=== PATIENT | female | born 1985 | race Caucasian/White ===

== ENCOUNTER 2021-09-22 13:09 | Outpatient (CLI) | payer BC ==
[2021-09-22 13:37] LABS: Creatinine,Urine Random 224.1 mg/dL
[2021-09-22 13:42] LABS: Basophils % (A) 0 %; Eosinophils % (A) 0 %; HCT 39.9 % (34.0-46.0); HGB 12.7 gm/dL (11.4-16.0); Lymphocytes % (A) 13 %; MCH 29.2 pg (25.0-35.0); MCHC 31.8 g/dL (31.0-37.0); MCV 92.1 fL (80.0-100.0); Mean Platelet Volume 10.7; Monocytes # (A) 0.4 k/uL (0-1.0); Monocytes % (A) 5 %; Neutrophils # (A) 6.5 k/uL (1.3-7.7); Neutrophils % (A) 80 %; Platelet Count 160 k/uL (150-450); RBC 4.33 m/uL (3.80-5.40); RDW 14.3 % (11.5-15.5)
[2021-09-22 13:46] LABS: Appearance,Urine Cloudy (Clear); Bacteria,Urine Occasional /hpf; Bilirubin,Urine Negative (Negative); Blood,Urine Negative (Negative); Color,Urine Yellow; Glucose,Urine (UA) Negative (Negative); Ketones,Urine 1+ (Negative); Leukocyte Esterase,Urine Moderate (Negative); Mucus,Urine Few /hpf; Nitrite,Urine Negative (Negative); Protein,Urine Trace (Negative); RBC,Urine 1 /hpf (0-5); Specific Gravity,Urine 1.021 (1.001-1.035); Squamous Epithelial Cell,Urine 6 /hpf (0-4); Urobilinogen,Urine <2.0 mg/dL (<2.0); WBC,Urine 8 /hpf (0-5)
[2021-09-22 13:56] LABS: ALT 10 U/L (4-34); AST 19 U/L (14-36); African American GFR (CKD) >90 (>60 ml/min/1.73 sqM); Blood Urea Nitrogen 5 mg/dL (7-17); LDH 312 U/L (313-618); Non-African American GFR(CKD) >90 (>60 ml/min/1.73 sqM); Uric Acid 5.1 mg/dL (3.7-7.4)
[2021-09-22 14:31] VITALS: BP 128/80; PULSE 81; RESP 16; TEMP 98.2
--- NOTE | 2021-09-23 06:32 | P.MSEPDOC ---
Presenting Problems - Arrival Data Date of Arrival on Unit: 09/22/21 Time of Arrival on Unit: 13:00 Mode of Transport: Ambulatory - Complaint OB-Reason for Admission/Chief Complaint: PIH Comment: sent from office with orders for a pih work up Medical History - Information : 2 Para: 1 Term: 1 : 0 Abortions: Spontaneous or Elective: 0 Number of Living Children: 1 - Gestational Age Gestational Age by ESTELLA (wks/days): 37 Weeks and 0 Days Review of Systems - Review of Systems Constitutional: No problems Breast: No problems ENT: No problems Cardiovascular: No problems Respiratory: No problems Gastrointestinal: No problems Genitourinary: No problems Musculoskeletal: No problems Neurological: No problems Skin: No problems Vital Signs - Temperature Temperature: 98.2 F Temperature Source: Oral - Pulse Right Brachial Pulse Rate: 81 Pulse Assessment Method: Auscultation - Respirations Respiratory Rate: 16 Oxygen Delivery Method: Room Air - Blood Pressure Right Arm Blood Pressure: 128/80 Blood Pressure Mean: 96 Blood Pressure Source: Automatic Cuff Medical Screen Scoring - Assessment - Baby A Baseline FHR: 150 Heart Rate - NICHD Category: Category I (Normal) NST: Reactive Physician Notification - Physician Notified Physician Notified Date: 09/22/21 Physician Notified Time: 14:07 Physician: Ulises Grullon New Order Received: Yes - Notification Comment Comment: reported lab values, dr discharges pt follow up on tuesday. c/s to be added to ua Maternal Triage Index - Maternal Triage Index Presenting for scheduled procedure w/no complaint: No - Stat/Priority 1 Stat Priority 1: No - Urgent/Priority 2 Urgent Priority 2: No - Prompt/Priority 3 Prompt Priority 3: No - Non-Urgent/Priority 4 Non-Urgent Priority 4: Yes Criteria Met for Priority 4: sent from office with orders for pih work up Disposition - Disposition OB Disposition: Discharge to home Discharge Date: 09/22/21 Discharge Time: 14:16 I agree with the RN Medical Screening Exam: Yes Case reviewed; plan agreed upon as documented in EMR&OBIX.: Yes Diagnosis: RELATED CONDITIONS, UNSPECIFIED, THIRD TRIMESTER
== END 2021-09-22 14:16 | disposition home or self-care (01) ==
LOC: FBPOP 13:09
PROVIDERS: ATTEND Obstetrics & Gynecology
DX: O13.3 Gestational [pregnancy-induced] hypertension without significant proteinuria, third trimester (principal); Z3A.37 37 weeks gestation of pregnancy
CPT/HCPCS: 59025; 81001; 82565; 82570; 83615; 84156; 84450; 84460; 84520; 84550; 85025

== ENCOUNTER 2021-10-12 05:49 | Inpatient (IN) | payer BC ==
--- NOTE | 2021-10-11 12:32 | P.HPOB ---
History of Present Illness H&P Date: 10/11/21 Chief Complaint: Requested induction of labor. This patient is a pleasant 36 yr female EDC 10/13/2021 estimated gestational age 39 and 6/7 weeks who presents to L&D for requested induction labor. is complicated by advanced for maternal age. She declined genetic testing or [facility] referral, but has had normal anatomy ultrasounds and antepartum testing. She also has a history of gestational hypertension with her first and has been on 81m ASA. Review of Systems Genitourinary: Reports Menstruation: Reports amenorrhea Past Medical History Additional Past Medical History / Comment(s): History of migraine headaches. Previous term vaginal delivery baby girl. History of Any Multi-Drug Resistant Organisms: None Reported Past Surgical History: No Surgical Hx Reported Past Anesthesia/Blood Transfusion Reactions: No Reported Reaction Past Psychological History: No Psychological Hx Reported Smoking Status: Never smoker Past Alcohol Use History: None Reported Past Drug Use History: None Reported Medications and Allergies Allergies Allergy/AdvReac Type Severity Reaction Status Date / Time No Known Allergies Allergy Verified 09/22/21 13:13 Exam - OBG Physical Exam Abdomen: bowel sounds normal, no diffuse tenderness, no bruit present, no gua rding noted, no hepatomegaly, no splenomegaly, no mass Vulva: both: normal Vagina: normal moisture, no discharge Cervix: no lesion (Cervix in office 1-2 cm/soft/-2), no discharge Uterus: enlarged (Fundal height is 39cm) Anus/Rectum: normal perianal skin (Fune), no rectal mass, no hemorrhoids, heme negative Results Labs: O positive, Rubella Immune, LIN-SON-AjnS neg, GBS negative, most recent ultrasound shows Vtx 5#9oz (~50%) Assessment and Plan Assessment: This is a pleasant 36 yr female 39 6/7 weeks gestation who presents to L&D for elective induction of labor. Plan is induction of labor and anticipate vaginal delivery. (1) 39 weeks gestation of Status: Acute Code(s): Z3A.39 - 39 WEEKS GESTATION OF SNOMED Code(s): 49605290 (2) Elderly multigravida Status: Acute Code(s): O09.529 - SUPERVISION OF ELDERLY MULTIGRAVIDA, UNSPECIFIED TRIMESTER SNOMED Code(s): 716124888 (3) Elective induction of labor planned Status: Acute Code(s): NJV5007 - SNOMED Code(s): 633676178
[2021-10-12] MEDS ORDERED: OXYTOCIN 10 UNIT/ML 1 ML VIAL IM PRN (06:19)
[2021-10-12] MEDS ORDERED: LIDOCAINE 0.5% (PF) 5 MG/ML (50 ML SDV) SQ PRN (06:19)
[2021-10-12] MEDS ORDERED: OXYTOCIN 30 UNITS/500 ML NS 30 UNIT in SALINE 1 500ML.BAG IV SCH ×2 (06:19→13:03)
[2021-10-12] MEDS ORDERED: TERBUTALINE 1 MG/ML VIAL SQ PRN (06:19)
[2021-10-12] MEDS ORDERED: METHYLERGONOVINE 0.2 MG/ML 1 ML AMP IM PRN (06:19)
[2021-10-12] MEDS ORDERED: CARBOPROST TROMETHAMINE 250 MCG/ML 1 ML AMP IM PRN (06:19)
[2021-10-12] MEDS: LACTATED RINGERS 1,000 ML IV SCH ×2 (06:25→09:54)
[2021-10-12 06:28] LABS: Basophils % (A) 0 %; Eosinophils % (A) 0 %; HCT 41.9 % (34.0-46.0); HGB 14.1 gm/dL (11.4-16.0); Lymphocytes # (A) 1.4 k/uL (1.0-4.8); Lymphocytes % (A) 15 %; MCH 31.2 pg (25.0-35.0); MCHC 33.5 g/dL (31.0-37.0); MCV 93.2 fL (80.0-100.0); Mean Platelet Volume 10.5; Monocytes # (A) 0.4 k/uL (0-1.0); Monocytes % (A) 4 %; Neutrophils # (A) 7.3 k/uL (1.3-7.7); Neutrophils % (A) 79 %; Platelet Count 210 k/uL (150-450); RDW 14.8 % (11.5-15.5); WBC 9.3 k/uL (3.8-10.6)
[2021-10-12] MEDS ORDERED: ROPIVACAINE 100 MG, fentaNYL (PF). 200 MCG in SODIUM CHLORIDE 0.9% 76 ML EPIDURAL ONE (10:09)
--- NOTE | 2021-10-12 13:01 | P.PROBDLV ---
Vaginal Delivery Note - . Vaginal Delivery Note: Normal vaginal delivery viable female Apgars 9 and 9 delivery time is 1244 hrs. Please see dictated H&P for intimate details of this patient's admission. Brief summary this is a pleasant 36-year-old 2 para 1 female 39-6/7 weeks who presents to labor and delivery for requested induction of labor. On admission she is 2 cm dilated has artificial rupture of membranes for clear fluid. Patient's labor is induced with Pitocin per protocol. She does progress to 3 cm and request an epidural which is given with good relief. She then begins having approximately couple hours layers variable decelerations she is exam is found to be 8-9 cm dilated. She quickly thereafter progresses to complete pushes the head to the perineum. Posterior perineum is supported and we have controlled delivery of the infant's head straight occiput anterior presentation. Mouth and nares are bulb suctioned. There is no evidence of a nuchal cord. With gentle downward traction we then have deliver the anterior and posterior shoulder and rest this 's body. This is a vigorous viable female Apgars are 9 and 9 delivery time is 1244 hrs. has spontaneous respiration and good cry and grossly appears normal. After delivery of the is laid on the mother's abdomen. After the cord is done pulsating is doubly clamped and then cut. It appears to be trivascular. The placenta is then spontaneously delivered intact. Inspection of the perineum shows a first- degree perineal laceration that is reapproximated with 4-0 Vicryl. Estimated blood loss is 100 mL. There are no complications. and mother stable delivery room.
[2021-10-12] MEDS ORDERED: diphenhydrAMINE 50 MG/ML 1 ML VIAL IVP PRN (13:03)
[2021-10-12] MEDS ORDERED: ZOLPIDEM 5 MG TAB PO PRN (13:03)
[2021-10-12] MEDS ORDERED: LANOLIN CREAM 5 GM TUBE TOPICAL PRN (13:03)
[2021-10-12] MEDS ORDERED: HYDROCORTISONE 2.5% RECTAL CREAM 30 GM TUBE RECTAL PRN (13:03)
[2021-10-12] MEDS ORDERED: SIMETHICONE 80 MG CHEWABLE PO PRN (13:03)
[2021-10-12] MEDS ORDERED: ACETAMINOPHEN TAB 325 MG TAB PO PRN (13:03)
[2021-10-12] MEDS ORDERED: diphenhydrAMINE 25 MG CAP PO PRN (13:03)
[2021-10-12] MEDS ORDERED: bisacodyL 10 MG SUPP RECTAL PRN (13:03)
[2021-10-12] MEDS ORDERED: BENZOCAINE/MENTHOL SPRAY 1 GM/SPRAY AEROSOL TOPICAL PRN (13:03)
[2021-10-12] MEDS: SENNOSIDES-DOCUSATE SODIUM 1 EACH TAB PO SCH ×2 (13:53→20:18)
[2021-10-12] MEDS: IBUPROFEN 600 MG TAB PO PRN (17:07)
[2021-10-13] MEDS: IBUPROFEN 600 MG TAB PO PRN ×2 (05:31→20:14)
--- NOTE | 2021-10-13 06:21 | P.PNOBGVD ---
Subjective - Subjective Patient reports: Reports appetite normal, Reports voiding normally, Reports pain well controlled, Reports ambulating normally : doing well Objective - Latest Vital Signs Latest vital signs: Vital Signs Temp Pulse Resp BP Pulse Ox 10/13/21 00:00 97.9 F 59 L 16 111/72 98 10/12/21 20:00 98.1 F 71 16 118/77 97 10/12/21 15:01 98.5 F 73 16 111/66 10/12/21 14:31 81 16 131/78 10/12/21 14:01 81 16 136/86 10/12/21 13:46 75 16 133/78 10/12/21 13:31 78 16 134/84 10/12/21 13:16 86 16 147/85 10/12/21 13:01 99.1 F 96 16 143/71 10/12/21 07:25 96.5 F L 110 H 16 141/82 Intake and Output 10/12/21 10/12/21 10/13/21 14:59 22:59 06:59 Output Total 100 125 Balance -100 -125 Output: Output, Quantitative 100 125 Blood Loss Other: # Voids 1 1 Weight 107.048 kg - Exam Lungs: bilateral: normal Chest: Normal S1, Normal S2 Extremities: Present: normal Abdomen: Present: normal appearance, soft Uterus: Present: normal, firm Assessment and Plan Assessment: day #1. Patient is resting without complaints and wishes to go home. Vital signs are stable she's afebrile. Uterus is firm nontender and she is having normal lochia. My impression this is a normal course. Plan is to continue routine care discharge home later today. (1) 39 weeks gestation of Current Visit: No Status: Acute Code(s): Z3A.39 - 39 WEEKS GESTATION OF SNOMED Code(s): 58122004 (2) Elderly multigravida Current Visit: No Status: Acute Code(s): O09.529 - SUPERVISION OF ELDERLY MULTIGRAVIDA, UNSPECIFIED TRIMESTER SNOMED Code(s): 154905392 (3) Elective induction of labor planned Current Visit: No Status: Acute Code(s): CZR6999 - SNOMED Code(s): 370003431
--- NOTE | 2021-10-13 06:24 | P.DS ---
Providers Date of admission: 10/12/21 05:49 Expected date of discharge: 10/13/21 Attending physician: Ulises Grullon Primary care physician: Stated None - Discharge Diagnosis(es) (1) 39 weeks gestation of Current Visit: No Status: Acute (2) Elderly multigravida Current Visit: No Status: Acute (3) Elective induction of labor planned Current Visit: No Status: Acute Hospital Course: Please see dictated H&P for intimate details of this patient's admission. Brief summary this is a pleasant 36-year-old 2 para 1 female 39-6/7 weeks gestation admitted to labor and delivery for requested induction of labor. Patient is induction of labor quickly goes on to have a vaginal delivery of viable female infant. Please see dictated delivery note. day #1 patient without complaints she wishes to go home. Patient's felt be stable for discharge home follow up with me in 6 weeks. Procedures: Induction of labor and normal vaginal delivery Plan - Discharge Summary New Discharge Prescriptions: No Action Vits96/Iron Fum/Folic [ Tablet] 1 tab PO DAILY Multivitamin [Multivitamins Adult Gummies] 1 tab PO DAILY Aspirin EC [Ecotrin Low Dose] 1 tab PO DAILY Discharge Medication List Aspirin EC [Ecotrin Low Dose] 1 tab PO DAILY 10/12/21 [History] Multivitamin [Multivitamins Adult Gummies] 1 tab PO DAILY 10/12/21 [History] Vits96/Iron Fum/Folic [ Tablet] 1 tab PO DAILY 10/12/21 [History] Follow up Appointment(s)/Referral(s): Ulises Grullon MD [STAFF PHYSICIAN] - 6 Weeks Patient Instructions/Handouts: Vaginal Delivery (DC) Activity/Diet/Wound Care/Special Instructions: No intercourse or anything per vagina for 6 weeks. Please call if any fever, chills, excessive vaginal bleeding, and/or abdominal pain. Discharge Disposition: HOME SELF-CARE
[2021-10-13 07:34] LABS: Basophils % (A) 0 %; Eosinophils # (A) 0.1 k/uL (0-0.7); Eosinophils % (A) 1 %; HCT 35.4 % (34.0-46.0); HGB 11.6 gm/dL (11.4-16.0); Lymphocytes # (A) 1.4 k/uL (1.0-4.8); Lymphocytes % (A) 16 %; MCH 31.1 pg (25.0-35.0); MCHC 32.9 g/dL (31.0-37.0); MCV 94.6 fL (80.0-100.0); Mean Platelet Volume 10.4; Monocytes # (A) 0.4 k/uL (0-1.0); Monocytes % (A) 5 %; Neutrophils # (A) 6.7 k/uL (1.3-7.7); Neutrophils % (A) 77 %; Platelet Count 149 k/uL (150-450); RBC 3.74 m/uL (3.80-5.40); RDW 14.6 % (11.5-15.5); WBC 8.7 k/uL (3.8-10.6)
[2021-10-13 18:46] VITALS: RESP 16
[2021-10-13] MEDS: SENNOSIDES-DOCUSATE SODIUM 1 EACH TAB PO SCH ×2 (18:46→20:15)
--- NOTE | 2021-10-14 06:06 | P.PN ---
Progress Note - Text Progress Note Date: 10/14/21 Patient was going to go home yesterday however her baby had some jaundice issues which required it to stay therefore the discharge was canceled. Patient is continuing to do well and having no new complaints. Plan today is seeing continue routine care and discharge home later today.
[2021-10-14] MEDS: SENNOSIDES-DOCUSATE SODIUM 1 EACH TAB PO SCH (07:38)
[2021-10-14 10:51] VITALS: BP 117/76; PULSE 66; TEMP 98.5
== END 2021-10-14 15:30 | disposition home or self-care (01) | DRG 806 ==
LOC: 4FBP 05:49
PROVIDERS: ADMIT Obstetrics & Gynecology; ATTEND Obstetrics & Gynecology
PROC: 10E0XZZ Delivery of Products of Conception, External Approach (ICD-10-PCS; principal; 2021-10-12)
PROC: 10907ZC Drainage of Amniotic Fluid, Therapeutic from Products of Conception, Via Natural or Artificial Opening (ICD-10-PCS; 2021-10-12)
PROC: 3E033VJ Introduction of Other Hormone into Peripheral Vein, Percutaneous Approach (ICD-10-PCS; 2021-10-12)
PROC: 0HQ9XZZ Repair Perineum Skin, External Approach (ICD-10-PCS; 2021-10-12)
DX: O76 Abnormality in fetal heart rate and rhythm complicating labor and delivery (principal); O99.354 Diseases of the nervous system complicating childbirth; Z37.0 Single live birth; O70.0 First degree perineal laceration during delivery; Z3A.39 39 weeks gestation of pregnancy; G43.909 Migraine, unspecified, not intractable, without status migrainosus
CPT/HCPCS: 85025; 86850; 86900; 86901

== ENCOUNTER → 2022-10-01 | Outpatient (CLI) | payer BC | END | disposition home or self-care (01) | LOC: LABWHC1 15:36 | PROVIDERS: ATTEND Obstetrics & Gynecology | DX: O20.0 Threatened abortion (principal); Z3A.00 Weeks of gestation of pregnancy not specified | CPT/HCPCS: 36415; 84702 ==

== ENCOUNTER → 2022-10-05 | Outpatient (CLI) | payer BC | END | disposition home or self-care (01) | LOC: LABWHC1 11:37 | PROVIDERS: ATTEND Obstetrics & Gynecology | DX: O03.9 Complete or unspecified spontaneous abortion without complication (principal) | CPT/HCPCS: 36415; 84702 ==

== ENCOUNTER → 2022-10-27 | Outpatient (CLI) | payer BC | END | disposition home or self-care (01) | LOC: LABWHC1 14:48 | PROVIDERS: ATTEND Obstetrics & Gynecology | DX: O03.9 Complete or unspecified spontaneous abortion without complication (principal) | CPT/HCPCS: 36415; 84702 ==

== ENCOUNTER → 2023-04-29 | Outpatient (CLI) | payer BC ==
--- NOTE | 2023-05-02 16:58 | MM ---
Reason for Exam: Screening (asymptomatic). Baseline mammogram. Patient History: Menarche at age 13. First Full-Term at age 29. Premenopausal. Patient has history of breast feeding. Mother had breast cancer at or over age 50. Mother had ovarian cancer under age 50. Mother tested for BRCA1 outcome was negative. Mother tested for BRCA2 outcome was negative. Last menstrual period: 04/06/2023 Risk Values: Kecia 5 year model risk: 0.8%. NCI Lifetime model risk: 19.0%. Prior Study Comparison: Patient's first Mammogram. Tissue Density: There are scattered fibroglandular densities. Findings: Analyzed By CAD. Focal asymmetry posterior 12:00 left breast for which further evaluation is recommended. Otherwise, no significant mass, suspicious microcalcification, or other discrete abnormality is seen. Overall Assessment: Incomplete: need additional imaging evaluation, BI-RAD 0 Management: Special View Mammogram of the left breast. Diagnostic Breast Ultrasound of the left breast. . [facility] will attempt to contact patient to return for supplemental views and ultrasound if indicated. Electronically signed and approved by: Cam Cam M.D. Radiologist
== END | disposition home or self-care (01) ==
LOC: RADMAMWWP 10:10
PROVIDERS: ATTEND Obstetrics & Gynecology
DX: Z12.31 Encounter for screening mammogram for malignant neoplasm of breast (principal); Z80.3 Family history of malignant neoplasm of breast
CPT/HCPCS: 77067

== ENCOUNTER → 2023-05-06 | Outpatient (CLI) | payer BC ==
--- NOTE | 2023-05-06 10:58 | MM ---
Reason for Exam: Additional evaluation requested from prior study. Last screening mammogram was performed less than 1 month ago. Patient History: Menarche at age 13. First Full-Term at age 29. Premenopausal. Patient has history of breast feeding. Mother had breast cancer at or over age 50. Mother had ovarian cancer under age 50. Mother tested for BRCA1 outcome was negative. Mother tested for BRCA2 outcome was negative. Risk Values: Kecia 5 year model risk: 0.8%. NCI Lifetime model risk: 19.0%. Prior Study Comparison: 04/29/2023 Bilateral MG screening mammo w CAD, [facility]. Tissue Density: Left: There are scattered fibroglandular densities. Findings: Analyzed By CAD. Oval, circumscribed 2 cm mass appears isodense to low density on additional views located at the 12:00 position posterior depth. Further ultrasound evaluation recommended. Overall Assessment: Incomplete: need additional imaging evaluation, BI-RAD 0 Management: Diagnostic Breast Ultrasound of the left breast. Electronically signed and approved by: Cam Cam M.D. Radiologist
--- NOTE | 2023-05-06 11:33 | USB ---
Reason for Exam: Additional evaluation requested from abnormal screening. Patient History: Menarche at age 13. First Full-Term at age 29. Premenopausal. Patient has history of breast feeding. Mother had breast cancer at or over age 50. Mother had ovarian cancer under age 50. Mother tested for BRCA1 outcome was negative. Mother tested for BRCA2 outcome was negative. Risk Values: Kecia 5 year model risk: 0.8%. NCI Lifetime model risk: 19.0%. Technique: Method: Targeted. Prior Study Comparison: 04/29/2023 Bilateral MG screening mammo w CAD, [facility]. Findings: The upper section of the breast of the left breast, the axilla of the left breast and the retroareolar of the left breast were scanned. Targeted ultrasound 11-1 o'clock left breast including the subareolar region and axilla. No suspicious area is identified. 9 cm from the nipple at 12:00, there is a questionable oval circumscribed isoechoic region that could represent a prominent lobule. Stereotactic biopsy is recommended. Overall Assessment: Suspicious, BI-RAD 4 Management: Stereotactic Core Biopsy of the left breast. Superior approach can be utilized. Results were given to the patient verbally at the time of exam. Electronically signed and approved by: Cam Cam M.D. Radiologist
== END | disposition home or self-care (01) ==
LOC: RADMAMWWP 10:32
PROVIDERS: ATTEND Obstetrics & Gynecology
DX: R92.322 Mammographic fibroglandular density, left breast (principal); Z80.3 Family history of malignant neoplasm of breast
CPT/HCPCS: 77061; 77065

== ENCOUNTER → 2023-05-23 | Day surgery (SDC) | payer BC | LOC: RADMAMWWP 07:37 | PROVIDERS: ATTEND Surgery | DX: D24.2 Benign neoplasm of left breast (principal) | CPT/HCPCS: 88305; 19081; A4648 ==

== ENCOUNTER → 2023-09-14 | Outpatient (CLI) | payer BC ==
[2023-09-14 14:53] LABS: Basophils # (A) 0.04 X 10*3/uL (0.00-0.10); Basophils % (A) 0.6 %; Eosinophils # (A) 0.14 X 10*3/uL (0.04-0.35); Eosinophils % (A) 2.3 %; Lymphocytes # (A) 1.79 X 10*3/uL (0.90-5.00); MCH 28.5 pg (27.0-32.0); MCHC 31.1 g/dL (32.0-37.0); MCV 91.5 FL (80.0-97.0); Monocytes # (A) 0.47 X 10*3/uL (0.20-1.00); Monocytes % (A) 7.6 %; NRBC Per 100 WBC 0 X 10*3/uL (0.00-0.01); Neutrophils # (A) 3.73 X 10*3/uL (1.80-7.70); Neutrophils % (A) 60.3 %; Platelet Count 230 X 10*3/uL (140-440); RBC 4.92 X 10*6/uL (4.10-5.20); RDW 13.7 % (11.5-14.5); WBC 6.18 X 10*3/uL (4.50-10.00)
== END | disposition home or self-care (01) ==
LOC: LABPAT 09:31
PROVIDERS: ATTEND Obstetrics & Gynecology
DX: Z01.812 Encounter for preprocedural laboratory examination (principal); N83.201 Unspecified ovarian cyst, right side
CPT/HCPCS: 36415; 85025

== ENCOUNTER 2023-09-16 12:41 | Day surgery (SDC) | payer BC ==
--- NOTE | 2023-09-16 08:16 | P.HPOB ---
History of Present Illness H&P Date: 09/16/23 Chief Complaint: ovarian cyst 38 year old presents for laparoscopic aspiration of simple large persistent ovarian cyst. Review of Systems All systems: negative Constitutional: Denies chills, Denies fever Eyes: denies blurred vision, denies pain Ears, nose, mouth and throat: Denies headache, Denies sore throat Cardiovascular: Denies chest pain, Denies shortness of breath Respiratory: Denies cough Gastrointestinal: Denies abdominal pain, Denies diarrhea, Denies nausea, Denies vomiting Genitourinary: Denies dysuria, Denies hematuria Musculoskeletal: Denies myalgias Integumentary: Denies pruritus, Denies rash Neurological: Denies numbness, Denies weakness Psychiatric: Denies anxiety, Denies depression Endocrine: Denies fatigue, Denies weight change Past Medical History Additional Past Medical History / Comment(s): Hx. migraine headaches. History of Any Multi-Drug Resistant Organisms: None Reported Past Surgical History: No Surgical Hx Reported Additional Past Surgical History / Comment(s): wisdom teeth removed, moles removed Past Anesthesia/Blood Transfusion Reactions: No Reported Reaction Smoking Status: Never smoker - Past Family History Mother Family Medical History: Cancer, Diabetes Mellitus, Hypertension Additional Family Medical History / Comment(s): breast cancer Father Family Medical History: Diabetes Mellitus, Hypertension Brother(s) Family Medical History: Hypertension Medications and Allergies Home Medications Medication Instructions Recorded Confirmed Type Vits96/Iron Fum/Folic 1 tab PO DAILY 10/12/21 09/14/23 History [ Tablet] Ascorbic Acid [Vitamin C] 500 mg PO DAILY 09/15/23 09/15/23 History Cholecalciferol [Vitamin D3 (25 25 mcg PO DAILY 09/15/23 09/15/23 History Mcg = 1000 Iu)] Zinc Gluconate [Zinc] 50 mg PO DAILY 09/15/23 09/15/23 History Allergies Allergy/AdvReac Type Severity Reaction Status Date / Time lidocaine AdvReac caused Verified 09/14/23 11:56 anxiety Exam Osteopathic Statement: *. No significant issues noted on an osteopathic structural exam other than those noted in the History and Physical/Consult. HEart: RRR Lungs: CTAB Abdomen: soft, nontender Extremeties: neg tracy's Assessment and Plan (1) Ovarian cyst Status: Acute Code(s): N83.209 - UNSPECIFIED OVARIAN CYST, UNSPECIFIED SIDE SNOMED Code(s): 51140447 Plan: 1. laparoscopic aspiration of ovarian cyst
[~2023-09-16 12:41] MED LIST: HYDROmorphone 0.5 MG/0.5 ML SYRINGE IVP PRN; Pre Op ABX Message 1 EACH MISC MISCELLANE ONE
[2023-09-16 13:21] VITALS: RESP 16
[2023-09-16] MEDS: DEXAMETHASONE SOD PHOSPHATE 4 MG/ML 1 ML VIAL IV ONE (13:31)
[2023-09-16] MEDS: ONDANSETRON 4 MG/2 ML VIAL IVP ONE (13:31)
[2023-09-16] MEDS: LACTATED RINGERS 1,000 ML IV SCH (13:31)
[2023-09-16] MEDS: IV FLUID CONTINUATION 1,000 ML IV ONE (13:34)
[2023-09-16] MEDS ORDERED: NEOSTIGMINE 1 MG/ML 10 ML VIAL ONE (13:49)
[2023-09-16] MEDS ORDERED: PROPOFOL 10 MG/ML 20 ML VIAL IV ONE (13:49)
[2023-09-16] MEDS ORDERED: SUCCINYLCHOLINE CHLORIDE 200 MG/10 ML VIAL IV ONE (13:49)
[2023-09-16] MEDS ORDERED: ROCURONIUM 10 MG/ML (5 ML VIAL) IV ONE (13:49)
[2023-09-16] MEDS ORDERED: fentaNYL (PF) 50 MCG/ML 2 ML AMP ONE (13:49)
[2023-09-16] MEDS ORDERED: GLYCOPYRROLATE 0.2 MG/ML 2 ML VIAL ONE (13:49)
[2023-09-16] MEDS ORDERED: KETOROLAC 15 MG/ML 1 ML VIAL ONE (13:49)
[2023-09-16] MEDS ORDERED: MIDAZOLAM 2 MG/2 ML VIAL ONE (13:49)
[2023-09-16] MEDS: BUPIVACAINE (PF) 0.25% 30 ML VIAL SQ ONE ×3 (14:10→14:14)
[2023-09-16 15:06] VITALS: TEMP 97.5
[2023-09-16 16:45] VITALS: BP 121/79; PULSE 59
--- NOTE | 2023-10-01 12:27 | P.OP ---
Date of Procedure: 09/16/23 Preoperative Diagnosis: 1. large ovarian cyst Postoperative Diagnosis: 1. large ovarian cyst Procedure(s) Performed: laparoscopic aspiration of right ovarian cyst Anesthesia: SHASTA Surgeon: Ya Padilla Estimated Blood Loss (ml): 5 IV fluids (ml): 300 Urine output (ml): 50 Pathology: none sent Condition: stable Disposition: PACU Operative Findings: serous fluid filled ovarian cyst on right ovary Description of Procedure: Patient is taken the operating room where general anesthesia was obtained without difficulty. She is prepped and draped in normal sterile fashion dorsal lithotomy position, legs placed in the Jonny stirrups. Weighted speculum placed in vagina the anterior lip the cervix was grasped with single-tooth tenaculum the uterus sounded to 7 cm and a kroner manipulator was placed. Bladder was drained of all urine. Attention was then turned to the abdomen and gloves were changed. A 10 mm infraumbilical incision was made the scalpel and a 10 mm optical trocar was placed under direct visualization. Suprapubic incision was made the scalpel 5 mm optical trocar was placed under direct visualization. Immediately upon entering the pelvis was noted that there was a very large right ovarian cyst. A small hole was made in this cyst suction was introduced and pulled out all the serous fluid. The ovary was then laid flat into the posterior cul-de-sac. All instruments removed from the abdomen and pelvis. The supraumbilical incision was closed with 0 Vicryl in the fascial layer and then 4-0 Vicryl subcuticular fashion. The suprapubic incision was closed with 4-0 Vicryl subcuticular fashion. Patient tolerated procedure well. Sponge and instrument counts were correct 2. She was taken to recovery in stable condition.
== END 2023-09-16 16:42 | disposition home or self-care (01) ==
LOC: OR 12:41
PROVIDERS: ATTEND Obstetrics & Gynecology
DX: N83.201 Unspecified ovarian cyst, right side (principal); G43.909 Migraine, unspecified, not intractable, without status migrainosus; Z88.8 Allergy status to other drugs, medicaments and biological substances; Z79.899 Other long term (current) drug therapy
CPT/HCPCS: 81025; 49322; J2250; J0330; J1100; J2710; J2405; J3010; J1885; J2704; J0665

== ENCOUNTER → 2023-11-09 | Outpatient (CLI) | payer BC ==
--- NOTE | 2023-11-09 08:29 | MM ---
Reason for Exam: Follow-up at short interval from prior study. Last screening mammogram was performed 6 month(s) ago. Patient History: Menarche at age 13. First Full-Term at age 29. Premenopausal. Patient has history of breast feeding. 05/23/2023, Benign MG stereo VAD BX LT on the left side. Maternal aunt had ovarian cancer at or over age 50. Mother had breast cancer, age 57. Mother had ovarian cancer, age 60. Mother tested for BRCA1 outcome was negative. Mother tested for BRCA2 outcome was negative. Risk Values: Kecia 5 year model risk: 1.2%. NCI Lifetime model risk: 23.0%. Prior Study Comparison: 04/29/2023 Bilateral MG screening mammo w CAD, [facility]. 05/06/2023 Left MG 3D work up w/cad LT, [facility]. Tissue Density: Left: There are scattered areas of fibroglandular density. Findings: Analyzed By CAD. Microclip marker noted at the site of previous left-sided breast biopsy. The area is not enlarged. No new nodules seen. No suspicious microcalcifications present. Overall Assessment: Benign, BI-RAD 2 Management: Screening Mammogram of both breasts in 1 year. . Results were given to the patient verbally at the time of exam. Patient should continue monthly self-breast exams. A clinical breast exam by your physician is recommended on an annual basis. This exam should not preclude additional follow-up of suspicious palpable abnormalities. Note on Kecia scores and lifetime risk: 1. A Kecia score greater than 3% is considered moderate risk. If this is the case, consider specialist referral to assess eligibility for a risk reducing agent. 2. If overall lifetime risk for the development of breast cancer is 20% or higher, the patient may qualify for future screening with alternating mammogram and breast MRI. Electronically signed and approved by: Jared Sebastian M.D. Radiologis
== END | disposition home or self-care (01) ==
LOC: RADMAMWWP 08:08
PROVIDERS: ATTEND Surgery
DX: R92.323 Mammographic fibroglandular density, bilateral breasts (principal); R92.8 Other abnormal and inconclusive findings on diagnostic imaging of breast; Z80.3 Family history of malignant neoplasm of breast; Z80.41 Family history of malignant neoplasm of ovary
CPT/HCPCS: 77061; 77065

== ENCOUNTER → 2024-02-24 | Outpatient (CLI) | payer BC ==
[2024-02-24 18:13] LABS: Basophils # (A) 0.03 X 10*3/uL (0.00-0.10); Basophils % (A) 0.4 %; Eosinophils # (A) 0.08 X 10*3/uL (0.04-0.35); Eosinophils % (A) 1.1 %; HCT 44.2 % (37.2-46.3); HGB 14.1 g/dL (12.0-15.0); Lymphocytes # (A) 1.63 X 10*3/uL (0.90-5.00); Lymphocytes % (A) 21.8 %; MCHC 31.9 g/dL (32.0-37.0); MCV 90.8 FL (80.0-97.0); Mean Platelet Volume 12.1 FL (9.5-12.2); Monocytes # (A) 0.65 X 10*3/uL (0.20-1.00); Monocytes % (A) 8.7 %; NRBC Per 100 WBC 0 X 10*3/uL (0.00-0.01); Neutrophils # (A) 5.09 X 10*3/uL (1.80-7.70); Neutrophils % (A) 67.9 %; Platelet Count 247 X 10*3/uL (140-440); RBC 4.87 X 10*6/uL (4.10-5.20); RDW 13.2 % (11.5-14.5); WBC 7.49 X 10*3/uL (4.50-10.00)
== END | disposition home or self-care (01) ==
LOC: LABWHC1 12:39
PROVIDERS: ATTEND Obstetrics & Gynecology
DX: Z01.818 Encounter for other preprocedural examination (principal)
CPT/HCPCS: 36415; 85025

== ENCOUNTER 2024-02-27 10:36 | Day surgery (SDC) | payer BC ==
[2024-02-24 13:54] VITALS: BMI 35.1
--- NOTE | 2024-02-27 06:53 | P.HPOB ---
History of Present Illness H&P Date: 02/27/24 Chief Complaint: right ovarian cyst 39 year old presents with 14cm right ovarian cyst. She had laparoscopic drainage of a 7cm cyst a few months ago on the same ovary. Plan today is to remove the right ovary and drain any cysts on the left ovary. Review of Systems All systems: negative Constitutional: Denies chills, Denies fever Eyes: denies blurred vision, denies pain Ears, nose, mouth and throat: Denies headache, Denies sore throat Cardiovascular: Denies chest pain, Denies shortness of breath Respiratory: Denies cough Gastrointestinal: Denies abdominal pain, Denies diarrhea, Denies nausea, Denies vomiting Genitourinary: Denies dysuria, Denies hematuria Musculoskeletal: Denies myalgias Integumentary: Denies pruritus, Denies rash Neurological: Denies numbness, Denies weakness Psychiatric: Denies anxiety, Denies depression Endocrine: Denies fatigue, Denies weight change Past Medical History Additional Past Medical History / Comment(s): rt ovarian cyst, Hx. migraine headaches. History of Any Multi-Drug Resistant Organisms: None Reported Past Surgical History: No Surgical Hx Reported Additional Past Surgical History / Comment(s): wisdom teeth removed, moles removed,laparoscopic ovarian cyst removed Past Anesthesia/Blood Transfusion Reactions: No Reported Reaction Additional Past Anesthesia/Blood Transfusion Reaction / Comment(s): no hx blood transfusion Smoking Status: Never smoker - Past Family History Mother Family Medical History: Cancer, Diabetes Mellitus, Hypertension Additional Family Medical History / Comment(s): breast cancer Father Family Medical History: Diabetes Mellitus, Hypertension Brother(s) Family Medical History: Hypertension Medications and Allergies Home Medications Medication Instructions Recorded Confirmed Type Vits96/Iron Fum/Folic 1 tab PO DAILY 10/12/21 02/24/24 History [ Tablet] Ascorbic Acid [Vitamin C] 500 mg PO DAILY 09/15/23 02/24/24 History Cholecalciferol [Vitamin D3 (25 25 mcg PO DAILY 09/15/23 02/24/24 History Mcg = 1000 Iu)] Zinc Gluconate [Zinc] 50 mg PO DAILY 09/15/23 02/24/24 History Allergies Allergy/AdvReac Type Severity Reaction Status Date / Time lidocaine AdvReac caused Verified 02/24/24 13:48 anxiety Exam Osteopathic Statement: *. No significant issues noted on an osteopathic structural exam other than those noted in the History and Physical/Consult. Heart: Regular rate and rhythm Lungs: Clear to auscultation bilaterally Abdomen: Soft, nontender Extremities: Negative Homans sign Assessment and Plan (1) Ovarian cyst Status: Acute Code(s): N83.209 - UNSPECIFIED OVARIAN CYST, UNSPECIFIED SIDE SNOMED Code(s): 19631796 Plan: 1. laparoscopic removal of right ovary and drainage of left ovarian cyst using da hai
[2024-02-27] MEDS: ONDANSETRON 4 MG/2 ML VIAL IVP STA (11:17)
[2024-02-27] MEDS: DEXAMETHASONE SOD PHOSPHATE 4 MG/ML 1 ML VIAL IVP STA (11:18)
[2024-02-27] MEDS: IV FLUID CONTINUATION 1,000 ML IV ONE (11:23)
[2024-02-27] MEDS: MIDAZOLAM 2 MG/2 ML VIAL IV ONE (11:31)
[2024-02-27] MEDS ORDERED: SUCCINYLCHOLINE CHLORIDE 200 MG/10 ML VIAL IV ONE (12:07)
[2024-02-27] MEDS ORDERED: KETOROLAC 15 MG/ML 1 ML VIAL ONE (12:07)
[2024-02-27] MEDS ORDERED: GLYCOPYRROLATE 0.2 MG/ML 2 ML VIAL ONE (12:07)
[2024-02-27] MEDS ORDERED: LIDOCAINE 1% INJ 10MG/ML (20 ML MDV) ONE (12:07)
[2024-02-27] MEDS ORDERED: PROPOFOL 10 MG/ML 20 ML VIAL IV ONE (12:07)
[2024-02-27] MEDS ORDERED: MIDAZOLAM 2 MG/2 ML VIAL ONE (12:07)
[2024-02-27] MEDS ORDERED: fentaNYL (PF) 50 MCG/ML 2 ML AMP ONE (12:07)
[2024-02-27] MEDS ORDERED: NEOSTIGMINE 1 MG/ML 10 ML VIAL ONE (12:07)
[2024-02-27] MEDS ORDERED: ROCURONIUM 10 MG/ML (5 ML VIAL) IV ONE (12:07)
[2024-02-27] MEDS: BUPIVACAINE (PF) 0.25% 30 ML VIAL SQ ONE ×2 (12:46→13:10)
[2024-02-27] MEDS: LACTATED RINGERS 1,000 ML IV ONE (13:17)
--- NOTE | 2024-02-27 13:24 | P.OP ---
Date of Procedure: 02/27/24 Preoperative Diagnosis: 1. right ovarian cyst Postoperative Diagnosis: 1. large right ovarian cyst Procedure(s) Performed: laparoscopic right oopherectomy using da vinici Anesthesia: SHASTA Surgeon: Ya Padilla Estimated Blood Loss (ml): 5 IV fluids (ml): 500 Urine output (ml): 200 Pathology: other (right ovary with cyst) Condition: stable Disposition: PACU Operative Findings: large right ovarian cyst with serous fluid. some solid components to the ovary. normal bilateral fallopian tubes and left ovary.normal appearing uterus sounded to 10cm. Description of Procedure: Patient taken the operating room where general anesthesia was obtained without difficulty. She is prepped and draped in normal sterile fashion dorsal lithotomy position, legs placed in the Jonny stirrups. Weighted speculum placed in the vagina and the anterior lip the cervix was grasped with single-tooth tenaculum. The uterus sounded to 10 cm and the Kroner manipulator was placed. Michael catheter was also placed. Attention was then turned to the abdomen and gloves were changed. A 5 mm supraumbilical incision was made the scalpel and a 5 mm optical trocar was placed under direct visualization. 10 cm to the right of this and 2 cm down a 5 mm incision was made and 8 mm da Christine port was placed under direct visualization. Same measurements on the opposite side of the patient's abdomen, the 5 mm incision was made and 8 mm da Christine port was placed under direct visualization. In the left upper quadrant a 10 mm incision was made and a 10 mm optical trocar was placed under direct visualization. The 5 mm optical trocar was then replaced with the 8 mm da Christine camera port. The robot was docked on patient's right side. The camera was introduced and then the monopolar curved scissor and [place] bipolar placed under direct visualization. I broke scrub and went to the physician console. the large right ovary was pierced using the monopolar curved scissors and the suction was introduced to pull out all of the fluid. Once the ovarian cyst had been drained then the ovary was removed along the mesosalpinx and from the IP ligament using the bipolar [place] to cauterize and the monopolar curved scissors to do the cutting. Stasis was assured. The right ovary was then placed into a #10 bag and pulled out the [employer] assistant manager port. The [employer] assistant manager port had to be extended minimally in order to release the ovary. The fascia was reapproximated using an Endo Stitch. The incisions were closed with 3-0 Vicryl in interrupted fashion. Patient followed procedure well. Sponge and instrument counts are correct 2. She is taken to recovery in stable condition. The abdominal incisions were closed with 4-0 Vicryl in a subcuticular fashion. Patient tolerated the procedure well, sponge and instrument counts correct 2 and she was taken to recovery room in stable condition condition
[2024-02-27 13:29] VITALS: TEMP 98.2
[2024-02-27] MEDS: HYDROmorphone 0.5 MG/0.5 ML SYRINGE IVP PRN (13:50)
[2024-02-27 14:28] VITALS: RESP 16
[2024-02-27 16:20] VITALS: BP 107/78; PULSE 56
[2024-02-28] MEDS ORDERED: HYDROmorphone 0.5 MG/0.5 ML SYRINGE IVP PRN (07:00)
== END 2024-02-27 16:36 | disposition home or self-care (01) ==
LOC: OR 10:36
PROVIDERS: ATTEND Obstetrics & Gynecology
DX: N83.201 Unspecified ovarian cyst, right side (principal); N83.202 Unspecified ovarian cyst, left side; Z90.721 Acquired absence of ovaries, unilateral; Z83.3 Family history of diabetes mellitus; Z82.49 Family history of ischemic heart disease and other diseases of the circulatory system; Z80.3 Family history of malignant neoplasm of breast; Z88.4 Allergy status to anesthetic agent; Z79.899 Other long term (current) drug therapy
CPT/HCPCS: 58662; J2250; J1100; J0690; J2405; J1171; J0665